=== PATIENT | male | born 1950 | race Caucasian/White ===

== ENCOUNTER 2016-09-21 06:22 | Inpatient (IN) | payer BC ==
[2016-09-14 10:19] LABS: BASOPHILS 0.6 %; BASOPHILS ABSOLUTE 0.04 10/3/uL (0.0-0.16); EOSINOPHILS 1.9 %; EOSINOPHILS ABSOLUTE 0.12 10/3/uL (0.0-0.53); HEMATOCRIT 48.2 % (40.0-51.0); HEMOGLOBIN 16.1 g/dL (13.6-17.8); IMMATURE GRANULOCYTES 0.3 %; IMMATURE GRANULOCYTES ABSOLUTE 0.02 10/3/uL (0.0-0.11); LYMPHOCYTES 38.2 %; LYMPHOCYTES ABSOLUTE 2.46 10/3/uL (0.67-4.30); MEAN CORPUS HGB CONC 33.4 g/dL (32.0-36.0); MEAN CORPUSCULAR HEMOGLOB 27.8 pg (26.0-34.0); MEAN CORPUSCULAR VOLUME 83.1 fL (80-100); MEAN PLATELET VOLUME 9.9 fL (9.2-13.0); MONOCYTES 7.3 %; MONOCYTES ABSOLUTE 0.47 10/3/uL (0.21-1.20); NEUTROPHILS 51.7 %; NEUTROPHILS ABSOLUTE 3.33 10/3/uL (2.02-8.40); PLATELET COUNT 197 10/3/uL (150-400); RBC DISTRIBUTION WIDTH 13.3 % (12.0-16.0); WHITE BLOOD CELLS 6.4 10/3/uL (4.5-10.5)
[2016-09-14 10:26] LABS: MANUAL DIFF NO %
[2016-09-14 10:31] LABS: A/G RATIO 1.2 (0.7-1.9); ALBUMIN 3.6 G/DL (3.5-5.0); ALKALINE PHOSPHATASE 91 U/L (45-117); CALCIUM, SERUM 8.6 MG/DL (8.5-10.4); CHLORIDE, SERUM 108 MMOL/L (96-112); CO2 (CARBON DIOXIDE) 28 MMOL/L (24-34); CREATININE 0.95 MG/DL (0.70-1.30); GFR AFRICAN AMERICAN 97 ML/MIN (>=60); GFR NON AFRICAN AMERICAN 84 ML/MIN (>=60); GLOBULIN 3.1 G/DL (2.5-4.1); GLUCOSE, SERUM 98 MG/DL (60-99); POTASSIUM, SERUM 4.2 MMOL/L (3.5-5.3); SGOT(AST) 20 U/L (5-40); SGPT(ALT) 40 U/L (5-65); SODIUM, SERUM 142 MMOL/L (135-148); TOTAL BILIRUBIN 0.3 MG/DL (0-1.2); TOTAL PROTEIN 6.7 G/DL (6.0-8.5)
[2016-09-14 10:32] LABS: BUN (BLOOD UREA NITROGEN) 16 MG/DL (6-23)
--- NOTE | ~2016-09-21 | OP ---
Record Of Operation [facility] Rony [place], [place]. [address] NAME: REVA ELIZALDE : 50 STATUS : ADM IN PAT#: [id number] AGE: 65 ADM/REG DATE : 09/21/16 MR#: [id number] REPORT SERV DATE: 09/22/16 DICTATED BY: ANNIA BANUELOS III DATE: 09/22/16 REPORT STATUS : Draft TRANSCRIBED BY: DENEENL DATE: 09/22/16 DATE OF PROCEDURE: DICTATION ENDS HERE Kayleen/DEREK Annia Banuelos III, M.D. / [id number] CC: Radha Farley III, FRANKLIN H
--- NOTE | ~2016-09-21 | OP ---
Record Of Operation [facility] [address] [place]. [address] NAME: REVA ELIZALDE : 50 STATUS : ADM IN PAT#: [id number] AGE: 65 ADM/REG DATE : 09/21/16 MR#: [id number] REPORT SERV DATE: 09/22/16 DICTATED BY: ANNIA BANUELOS III DATE: 09/22/16 REPORT STATUS : Draft TRANSCRIBED BY: MODL DATE: 09/22/16 DATE OF PROCEDURE: 09/21/2016 PREOPERATIVE DIAGNOSIS: Mass of the transverse colon, adenoma, possible malignancy. POSTOPERATIVE DIAGNOSIS: Mass of the transverse colon, adenoma, possible malignancy. PROCEDURE: Laparoscopic segmental transverse colectomy with primary anastomosis. SURGEON: Annia Banuelos M.D. ANESTHESIA: General with intubation. COMPLICATIONS: None. ESTIMATED BLOOD LOSS: 25 mL. SPECIMEN: Segmental resection of transverse colon with mesentery. DRAINS: Justice in the subcutaneous tissue. LAP AND SPONGE COUNT: Correct x3. BRIEF HISTORY: This 65-year-old male was recently found to have on routine colonoscopy a 5 cm mass in the transverse colon. Biopsy showed this to be an adenoma. It was felt that laparoscopic resection of the involved portion of transverse colon, possible laparotomy, was indicated. This procedure, the risks, benefits, and alternatives, including but not limited to the risk for bleeding, infection, enterotomy, injury to any abdominal structure, postop small bowel obstruction, ileus, incisional hernia, dehiscence, anastomotic leak, requiring reoperation with colostomy, ureteral injury, possible need for laparotomy, and unforeseen complications including deep venous thrombosis, pulmonary embolus, myocardial infarction, stroke, pneumonia, and , were fully and completely explained to the patient's family at length prior to surgery. The fact that this was a major operation with risk for major morbidity and mortality was explained as well as expected length of recovery both open and laparoscopic procedures. The patient and family had questions which were answered. They fully understood the risks and agreed to the surgery as planned. FINDINGS: The mass was identified in the mid transverse colon. Segmental resection of the mid transverse colon with primary anastomosis was performed. There was no evidence for metastatic disease. The lesion was fairly firm clinically and of concern for a possible underlying malignancy. PROCEDURE IN DETAIL: After being appropriately identified and after discussing risks of surgery with the patient and his family again in the preoperative area, and after appropriate bowel preparation at home, the patient was taken to the operating room and placed in the supine position on the operating room table. General anesthesia was Record Of Operation [address] [place]. [address] NAME: REVA ELIZALDE : 50 STATUS : ADM IN PAT#: [id number] AGE: 65 ADM/REG DATE : 09/21/16 MR#: [id number] REPORT SERV DATE: 09/22/16 DICTATED BY: ANNIA BANUELOS III DATE: 09/22/16 REPORT STATUS : Draft TRANSCRIBED BY: MODMarie DATE: 09/22/16 administered. He was intubated without difficulty. A Seymour catheter was inserted. His legs were placed in stirrups. They were carefully and appropriately padded and protected. The abdomen and perineum were prepped and draped sterilely in the usual fashion. After an appropriate "time-out" per [facility] standards, a small transverse incision was made just below the umbilicus. The skin and fascia on either side of this were elevated with towel clips. A Veress needle was placed through the incision into the peritoneal cavity. Correct position of the needle in the peritoneal cavity was confirmed by the hanging drop test. The abdominal cavity was then insufflated to about 13 mmHg of carbon dioxide. Correct position of the air in the peritoneal cavity was confirmed by palpation. The Veress needle was removed and replaced with a 10 mm trocar. The laparoscope was placed through this. A 5 mm trocar was then placed in the left upper quadrant, under direct vision with the laparoscope. Another 5 mm trocar was placed along the left lateral abdominal wall, just lateral to the umbilicus, also under direct vision with the laparoscope. The abdomen was inspected and explored. There was no evidence for carcinomatosis of peritoneal implants. We identified the transverse colon. The area which had been marked on the transverse colon by the endoscopist was identified. This was in the mid transverse colon. The patient was elevated slightly into the reverse Trendelenburg position. The appropriate instruments were placed through the trocars. Using sharp dissection, the adhesions between the omentum and transverse colon were carefully divided. The transverse colon was fully mobilized. After adequate mobilization, a small vertical incision was made in the midline just beneath the xiphoid process. The incision was continued through the subcutaneous tissue. Hemostasis was controlled with electrocautery. The incision was continued through the fascia. The abdominal cavity was entered. The transverse colon was mobilized into the wound. We identified a palpable mass corresponding to the area which had been marked by the endoscopist in the mid transverse colon. We selected a point for division in the transverse colon proximal and distal to the mass. We selected a point for division proximally several centimeters proximal to the mass and a window was made in the mesentery of the transverse colon. The transverse colon was divided here with the WESLEY stapler. Similarly, the transverse colon was divided distal to the mass, also with the WESLEY stapler. The mesentery to the involved portion of the transverse colon was then divided using Harmonic scalpel. This was done along the base of the mesentery so as to perform correct oncologic dissection of the lymphovascular supply to this portion of the transverse colon. The involved portion of the transverse colon was thus removed, oriented with sutures and sent to Pathology. It was interpreted as containing the tumor with clear margins. We then performed a [id number] anastomosis between the divided transverse colon proximally and distally. This was performed by aligning the antimesenteric border of the transverse colon proximally with antimesenteric border of the colon distally with interrupted 3-0 silk sutures. A small opening was made in the antimesenteric border of the colon proximally and distally, and a WESLEY stapler was placed through this and fired. The defect created by the stapler was then closed with a TA-60 stapler. This staple line was oversewn with interrupted 3-0 silk sutures. The "crotch" anastomosis was secured with 3-0 silk sutures. Upon completion of this, the anastomosis was widely patent to palpation. It was not twisted or kinked in any way and was not under any tension. This was reduced back into the abdominal cavity. The area was irrigated copiously with saline. Hemostasis was assured. The fascia was closed with a running looped #1 PDS suture. The subcutaneous tissue was closed with a running 3-0 chromic suture over a Justice drain which was brought through the Record Of Operation [address] [place]. [address] NAME: REVA ELIZALDE : 50 STATUS : ADM IN [facility]#: [id number] AGE: 65 ADM/REG DATE : 09/21/16 MR#: [id number] REPORT SERV DATE: 09/22/16 DICTATED BY: ANNIA BANUELOS III DATE: 09/22/16 REPORT STATUS : Draft TRANSCRIBED BY: DEREK DATE: 09/22/16 inferior aspect of the incision. The skin was closed with running subcuticular 4-0 Monocryl stitch. The incision was injected with 0.5% Marcaine. All trocars were removed. The fascia of the infraumbilical incision was closed with 0 Vicryl suture. The trocar sites skin incisions were closed with running subcuticular 4-0 Monocryl stitches and injected with 0.5% Marcaine. Dressings were applied. Anesthesia was reversed, and the patient was taken to the recovery room in stable condition. He tolerated the procedure well. His family was informed results of surgery. The patient will remain in the hospital for postoperative care. RHJ/DEREK Annia Banuelos III, M.D. / [id number] CC: Radha Farley III, [place] H Gregory Olds, MD
--- NOTE | ~2016-09-21 | PREOPHP ---
PreOp History and Physical [address] [place]. [address] NAME: REVA ELIZALDE OFELIA : 50 STATUS : ADM IN [facility]#: [id number] AGE: 65 ADM/REG DATE : 09/21/16 MR#: [id number] REPORT SERV DATE: 09/21/16 DICTATED BY: ANNIA BANUELOS III DATE: 08/25/16 REPORT STATUS : Draft TRANSCRIBED BY: MODL DATE: 08/25/16 HISTORY OF PRESENT ILLNESS: This 65-year-old male comes to the operating room for laparoscopic partial colectomy, possible laparotomy, for a tubular adenoma of the splenic flexure of the colon. The patient recently had a routine colonoscopy. He was found to have a 3.5 cm mass at the splenic flexure. Biopsy shows this to be a tubular adenoma. The mass is too large to be removed endoscopically. The patient comes to the operating room now for laparoscopic resection of the involved portion of the transverse colon and left colon at the splenic flexure, possible laparotomy. PAST MEDICAL HISTORY: 1. History of hyperlipidemia. 2. Hypertension. 3. History of spontaneous pneumothorax. ALLERGIES: NONE. MEDICATIONS: Aspirin, atorvastatin, Coenzyme Q. PAST SURGICAL HISTORY: Includes hernia repair and surgery for pneumothorax x2. SOCIAL HISTORY: The patient has a previous history of tobacco abuse. No history of alcohol use. FAMILY HISTORY: Unremarkable. REVIEW OF SYSTEMS: The patient's 14-point review of systems essentially unremarkable. PHYSICAL EXAMINATION: GENERAL: Male, in no acute distress. He is alert and oriented x3. VITAL SIGNS: Blood pressure 140/81, pulse 80, temperature 97.1. HEENT: Unremarkable. CRANIAL NERVES: II through XII normal. LUNGS: Clear. CARDIAC: Normal. ABDOMEN: Soft. Nontender. No masses. EXTREMITIES: Normal with no edema. LABORATORY DATA: Colonoscopy shows a 3.5 cm mass at the splenic flexure. This was carpet- like, flat, and sessile. Biopsy shows this to be a tubular adenoma without high-grade dysplasia. The area was tattooed. ASSESSMENT: 1. 65-year-old male with biopsy-proven tubular adenoma, 3.5 cm in size, at the splenic flexure. PreOp History and Physical [address] [address] NAME: MAR ELIZALDESONA GILBERT : 50 STATUS : ADM IN PAT#: [id number] AGE: 65 ADM/REG DATE : 09/21/16 MR#: [id number] REPORT SERV DATE: 09/21/16 DICTATED BY: ANNIA BANUELOS III DATE: 08/25/16 REPORT STATUS : Draft TRANSCRIBED BY: DEREK DATE: 08/25/16 2. Hyperlipidemia. 3. Hypertension. 4. History of spontaneous pneumothorax in the past. PLAN: The patient comes to the operating room now for laparoscopic partial colectomy for removal of the involved portion of the splenic flexure, possible laparotomy. This procedure, the risks, benefits, and alternatives, including not limited to the risk for bleeding, infection, enterotomy, injury to abdominal structure, postop small bowel obstruction, ileus, incisional hernia, dehiscence, anastomotic leak, requiring reoperation with colostomy, injury to the spleen requiring splenectomy, ureteral injury, possible need for full laparotomy, and unforeseen complications including deep venous thrombosis, pulmonary embolus, myocardial infarction, stroke, pneumonia, and , have been fully and completely explained to the patient and his family at length prior to surgery. The fact that this is a major operation with risk for major morbidity and mortality has been explained. The expected length of recovery of both open and laparoscopic procedures has been explained. The fact that this is a premalignant process or neoplasm has been explained. The patient's questions have been answered. He clearly understands the risks and agrees to surgery as planned. CHRIS/DEREK Annia Banuelos III, M.D. / [id number]
[~2016-09-21 06:22] MED LIST: ALLERGY MED; ASAB PO; LIPITOR40 PO; MULTIVITAMI1 PO
[2016-09-21 07:08] LABS: INTERNATIONAL NORMAL RATI 1.1 UNITS (-); PARTIAL THROMBO TIME 29.7 SEC (22.5-37.2); PROTIME (NOT ORD) 13.7 SEC (12.0-14.5)
[2016-09-22 05:40] LABS: BASOPHILS 0.1 %; BASOPHILS ABSOLUTE 0.01 10/3/uL (0.0-0.16); EOSINOPHILS 0 %; HEMATOCRIT 44.2 % (40.0-51.0); HEMOGLOBIN 14.7 g/dL (13.6-17.8); IMMATURE GRANULOCYTES 0.1 %; IMMATURE GRANULOCYTES ABSOLUTE 0.01 10/3/uL (0.0-0.11); LYMPHOCYTES 16.4 %; LYMPHOCYTES ABSOLUTE 1.97 10/3/uL (0.67-4.30); MEAN CORPUS HGB CONC 33.3 g/dL (32.0-36.0); MEAN CORPUSCULAR HEMOGLOB 27.4 pg (26.0-34.0); MEAN CORPUSCULAR VOLUME 82.3 fL (80-100); MEAN PLATELET VOLUME 9.6 fL (9.2-13.0); MONOCYTES 8.9 %; MONOCYTES ABSOLUTE 1.07 10/3/uL (0.21-1.20); NEUTROPHILS 74.5 %; NEUTROPHILS ABSOLUTE 8.92 10/3/uL (2.02-8.40); PLATELET COUNT 162 10/3/uL (150-400); RBC DISTRIBUTION WIDTH 13.6 % (12.0-16.0); RED CELL COUNT 5.37 10/6/uL (4.7-6.1)
[2016-09-22 05:43] LABS: MANUAL DIFF NO %
[2016-09-22 05:52] LABS: CALCIUM, SERUM 8.1 MG/DL (8.5-10.4); CHLORIDE, SERUM 110 MMOL/L (96-112); CO2 (CARBON DIOXIDE) 26 MMOL/L (24-34); CREATININE 0.98 MG/DL (0.70-1.30); GFR AFRICAN AMERICAN 93 ML/MIN (>=60); GFR NON AFRICAN AMERICAN 81 ML/MIN (>=60); POTASSIUM, SERUM 3.9 MMOL/L (3.5-5.3); SODIUM, SERUM 144 MMOL/L (135-148)
[2016-09-22 05:54] LABS: BUN (BLOOD UREA NITROGEN) 8 MG/DL (6-23); GLUCOSE, SERUM 126 MG/DL (60-99)
[2016-09-23 05:33] LABS: BASOPHILS 0.3 %; BASOPHILS ABSOLUTE 0.02 10/3/uL (0.0-0.16); EOSINOPHILS 1.2 %; EOSINOPHILS ABSOLUTE 0.09 10/3/uL (0.0-0.53); HEMATOCRIT 45.4 % (40.0-51.0); IMMATURE GRANULOCYTES 0.1 %; IMMATURE GRANULOCYTES ABSOLUTE 0.01 10/3/uL (0.0-0.11); LYMPHOCYTES 33.8 %; LYMPHOCYTES ABSOLUTE 2.58 10/3/uL (0.67-4.30); MEAN CORPUSCULAR HEMOGLOB 27.5 pg (26.0-34.0); MEAN CORPUSCULAR VOLUME 83.3 fL (80-100); MEAN PLATELET VOLUME 9.5 fL (9.2-13.0); MONOCYTES 8.1 %; MONOCYTES ABSOLUTE 0.62 10/3/uL (0.21-1.20); NEUTROPHILS 56.5 %; NEUTROPHILS ABSOLUTE 4.32 10/3/uL (2.02-8.40); PLATELET COUNT 165 10/3/uL (150-400); RBC DISTRIBUTION WIDTH 13.6 % (12.0-16.0); RED CELL COUNT 5.45 10/6/uL (4.7-6.1); WHITE BLOOD CELLS 7.6 10/3/uL (4.5-10.5)
[2016-09-23 05:36] LABS: MANUAL DIFF NO %
[2016-09-23 05:48] LABS: BUN (BLOOD UREA NITROGEN) 9 MG/DL (6-23); CALCIUM, SERUM 8.3 MG/DL (8.5-10.4); CHLORIDE, SERUM 111 MMOL/L (96-112); CO2 (CARBON DIOXIDE) 25 MMOL/L (24-34); CREATININE 0.86 MG/DL (0.70-1.30); GFR AFRICAN AMERICAN 105 ML/MIN (>=60); GFR NON AFRICAN AMERICAN 91 ML/MIN (>=60); POTASSIUM, SERUM 3.8 MMOL/L (3.5-5.3); SODIUM, SERUM 144 MMOL/L (135-148)
[2016-09-23 05:53] LABS: GLUCOSE, SERUM 96 MG/DL (60-99)
[2016-09-23] MEDS ORDERED: PERCOCET 7.5/321 TAB PO (08:49)
== END 2016-09-23 11:30 | disposition home or self-care (01) | DRG 331 ==
LOC: SDC/OF 06:22 → PACU 11:37 → 5SO 14:41
PROVIDERS: Surgery
PROC: 3E0T3BZ Introduction of Anesthetic Agent into Peripheral Nerves and Plexi, Percutaneous Approach (ICD-10-PCS; 2016-09-21)
PROC: 0DBL4ZZ Excision of Transverse Colon, Percutaneous Endoscopic Approach (ICD-10-PCS; principal; 2016-09-21 08:45)
DX: D12.3 Benign neoplasm of transverse colon (principal); I10 Essential (primary) hypertension; E78.5 Hyperlipidemia, unspecified; Z79.82 Long term (current) use of aspirin; E11.9 Type 2 diabetes mellitus without complications; Z79.899 Other long term (current) drug therapy
CPT/HCPCS: 36415; 71020; 80048; 80053; 82962; 85025; 85610; 85730; 86850; 86900; 86901; 88309; 93005; A9270-GY; C9113; J0690; J1885; J2250; J2405; J2710; J2795; J3010